=== PATIENT | female | born 2000 | race African-American/Black ===

== ENCOUNTER 2022-09-02 14:37 | Emergency (ER) | payer OTHER, SELFPAY ==
--- NOTE | ~2022-09-02 | XR_ITS ---
EXAMINATION: XR CHEST CLINICAL INFORMATION: Cough and shortness of breath COMPARISON: None TECHNIQUE: Frontal portable view of the chest was obtained. 7:56 PM FINDINGS: No significant abnormality is noted involving the heart, lungs, mediastinum, bony thorax or soft tissues. XR/XR chest 1V IMPRESSION: Unremarkable examination.
[2022-09-02 16:44] VITALS: BP 110/47; PULSE 82; RESP 16; TEMP 36.7; O2SAT 96; BMI 23.2
--- NOTE | 2022-09-02 16:45 | ED.GENADULT ---
HPI - General Adult General Chief complaint: Upper Respiratory Symptoms <Luma Garvin MD - Last Filed: 09/02/22 16:46> Stated complaint: sore throat <Luma Garvin MD - Last Filed: 09/02/22 16:46> Time Seen by Provider: 09/02/22 19:24 <Luma Garvin MD - Last Filed: 09/02/22 16:46> Source: patient <ROSALIE Cloud - Last Filed: 09/03/22 01:09> Mode of arrival: ambulatory <ROSALIE Cloud - Last Filed: 09/03/22 01:09> History of Present Illness HPI narrative: Pt is a 22 yo assigned female at w/ no significant PMHx presenting w/ a 5 day hx of flu-like symptoms. Pt states symptoms started last w/ a sore throat and cough that is productive of yellow sputum. Endorses associated subjective fevers and SOB. Denies headache, ear pain, dizziness, lightheadedness, chest pain, lymphadenopathy, abd pain, N/V/D, changes to urinary habits or dysuria, myaglias, or rashes. Denies known sick contacts. <ROSALIE Cloud - Last Filed: 09/03/22 01:09> Onset (ago): day(s) (5) <ROSALIE Cloud - Last Filed: 09/03/22 01:09> Location: head and neck (sore throat) <ROSALIE Cloud - Last Filed: 09/03/22 01:09> Radiation: non-radiation <ROSALIE Cloud - Last Filed: 09/03/22 01:09> Severity: mild <ROSALIE Cloud - Last Filed: 09/03/22 01:09> Severity scale (1-10): 2 <ROSALIE Cloud Last Filed: 09/03/22 01:09> Quality: aching <ROSALIE Cloud - Last Filed: 09/03/22 01:09> Pain Consistency: constant <ROSALIE Cloud Last Filed: 09/03/22 01:09> Relieving factors: medication (DayQuil, NyQuil) <ROSALIE Cloud - Last Filed: 09/03/22 01:09> Exacerbating factors: none <ROSALIE Cloud - Last Filed: 09/03/22 01:09> Associated symptoms: cough and fever/chills <ROSALIE Cloud - Last Filed: 09/03/22 01:09> Treatments prior to arrival: none <ROSALIE Cloud - Last Filed: 09/03/22 01:09> Related Data Home medications: Previous Rx's Medication Instructions Recorded benzonatate 100 mg capsule 100 mg PO TID PRN cough #14 caps 09/02/22 fluticasone propionate 50 2 spray intranasal DAILY #16 grams 09/02/22 mcg/actuation nasal spray,suspension (Flonase Allergy Relief) <Luma Garvin MD - Last Filed: 09/02/22 16:46> Allergies/adverse reactions: Allergies Allergy/AdvReac Type Severity Reaction Status Date / Time Unable to Assess Allergy Verified 09/02/22 15:06 <Luma Garvin MD - Last Filed: 09/02/22 16:46> Review of Systems Review of Systems: Constitutional: +subj Fever, No Chills ENT/Mouth: No Ear Pain, + Nasal Congestion, No Sinus Pain, No Hoarseness, + sore throat, No Rhinorrhea, No Swallowing Difficulty Cardiovascular: No Chest Pain, + SOB Respiratory: + Cough, + Sputum, No Wheezing Gastrointestinal: No Nausea, No Vomiting, No Diarrhea, No Constipation, No Abdominal pain Genitourinary: No Dysuria, No Urinary Frequency, No Hematuria, No Flank Pain Musculoskeletal: No joint pain, No Myalgias, No Joint Swelling Skin: No Skin Lesions, No rash Neuro: No Weakness, No headache, No dizziness/lightheadedness <ROSALIE Cloud Last Filed: 09/03/22 01:09> Yes all other systems are reviewed and are negative <ROSALIE Cloud Last Filed: 09/03/22 01:09> Constitutional: Constitutional: Reports as per HPI <ROSALIE Cloud Last Filed: 09/03/22 01:09> PMFSH Past Medical History Attestation statement: The following information was validated with the patient. <ROSALIE Cloud - Last Filed: 09/03/22 01:09> Social History Social History: Social History Advance Directives: No Advance Directives Information Provided: No <Luma Garvin MD - Last Filed: 09/02/22 16:46> Physical Exam ED Vital Signs: Vital Signs - 24 hr 09/02/22 16:44 Temperature 98.1 F Pulse Rate 82 Respiratory Rate 16 Blood Pressure 110/47 L Pulse Oximetry 96 Oxygen Delivery Method Room Air BMI result Body Mass Index 23.2 <Luma Garvin MD - Last Filed: 09/02/22 16:46> Vital Signs - 24 hr 09/02/22 16:44 Temperature 98.1 F Pulse Rate 82 Respiratory Rate 16 Blood Pressure 110/47 L Pulse Oximetry 96 Oxygen Delivery Method Room Air BMI result Body Mass Index 23.2 <ROSALIE Cloud - Last Filed: 09/03/22 01:09> Const General: cooperative, healthy appearing, no acute distress, well developed, alert and awake <ROSALIE Cloud - Last Filed: 09/03/22 01:09> Orientation/consciousness: patient oriented x3 <ROSALIE Cloud - Last Filed: 09/03/22 01:09> Limitations: no limitations <ROSALIE Cloud - Last Filed: 09/03/22 01:09> HENMT Head: Yes normal to inspection and Yes atraumatic <ROSALIE Cloud - Last Filed: 09/03/22 01:09> Ears: hearing grossly normal bilaterally, external ears normal, TM's normal bilaterally and mastoids normal <ROSALIE Cloud - Last Filed: 09/03/22 01:09> General nose exam: Normal external nose present <ROSALIE Cloud Last Filed: 09/03/22 01:09> Face and sinus: Yes normal facial exam <ROSALIE Cloud Last Filed: 09/03/22 01:09> Mouth: Normal oral and palatal mucosa present, oropharynx normal, moist mucous membranes, no drooling and no muffled voice <ROSALIE Cloud Last Filed: 09/03/22 01:09> Throat: Yes posterior oropharynx normal, Yes tonsils normal, Yes uvula midline and No peritonsillar mass <ROSALIE Cloud - Last Filed: 09/03/22 01:09> Eyes General: appearance normal, both eyes and all related structures <ROSALIE Cloud - Last Filed: 09/03/22 01:09> Conjunctivae: conjunctival abnormal left conjunctival injection (mild, no drainage noted) <ROSALIE Cloud - Last Filed: 09/03/22 01:09> EOM: EOMs intact bilaterally <ROSALIE Cloud - Last Filed: 09/03/22 01:09> Neck Neck: Yes normal visual inspection, Yes no lymphadenopathy, Yes no meningeal signs and Yes trachea midline <ROSALIE Cloud - Last Filed: 09/03/22 01:09> Lymphatic: no lymphadenopathy noted <ROSALIE Cloud - Last Filed: 09/03/22 01:09> Chest Chest palpation & inspection: normal inspection of the chest <ROSALIE Cloud - Last Filed: 09/03/22 01:09> Resp Effort & Inspection: normal respiratory effort, no respiratory distress and no stridor <ROSALIE Cloud - Last Filed: 09/03/22 01:09> Auscultation: clear to auscultation bilaterally, no crackles, no rales, no rhonchi and no wheezes <ROSALIE Cloud - Last Filed: 09/03/22 01:09> Cardio Rate: regular rate <ROSALIE Cloud - Last Filed: 09/03/22 01:09> Heart sounds: S1 normal heart sound present and S2 normal heart sound present <ROSALIE Cloud - Last Filed: 09/03/22 01:09> GI Inspection: Yes normal to inspection <ROSALIE Cloud - Last Filed: 09/03/22 01:09> Palpation (GI): Soft to palpation, nontender, no guarding and not rigid <ROSALIE Cloud - Last Filed: 09/03/22 01:09> Skin General skin exam: no rashes or lesions noted <ROSALIE Cloud - Last Filed: 09/03/22 01:09> Neuro General: patient oriented x3 and no meningeal signs <ROSALIE Cloud - Last Filed: 09/03/22 01:09> Extrem General: Yes normal to inspection, Yes no pedal edema and Yes no calf tenderness <ROSALIE Cloud - Last Filed: 09/03/22 01:09> Course Course Course Narrative: 22F with sore throat, cough, dysphagia, no sick contacts, since . VS Reviewed GEN: NAD HEENT: NC/AT, EOMI/PERRLA, Ears wnl, Throat wnl PULM: CTAB, no tachypnea CVS: RRR, no murmurs ABD: Nt/ND Ext: warm, dry - SARS, Strep <Luma Garvin MD - Last Filed: 09/02/22 16:46> 22F with sore throat, cough, dysphagia, no sick contacts, since . VS Reviewed GEN: NAD HEENT: NC/AT, EOMI/PERRLA, Ears wnl, Throat wnl PULM: CTAB, no tachypnea CVS: RRR, no murmurs ABD: Nt/ND Ext: warm, dry - SARS, Strep -2046--CXR unremakable <ROSALIE Cloud - Last Filed: 09/03/22 01:09> Medical Decision Making Medical Decision Making MDM Narrative: Pt is a 22 yo assigned female at w/ no significant PMHx presenting w/ a 5 day hx of flu-like symptoms. On exam vital signs stable, NAD, nontoxic appearing, exam otherwise nonfocal, no evidence of LEGAL ACTIVITY ADJUDICATOR, lungs CTA. Concern for viral illness vs bronchitis vs asthma vs pharyngitis. No evidence of LEGAL ACTIVITY ADJUDICATOR. Low suspicion for ACS/PE Plan: CXR, COVID-19/influenza/RSV testing, rapid strep <ROSALIE Cloud - Last Filed: 09/03/22 01:09> Differential Diagnoses: Differential diagnosis (as above) Differential Diagnosis: The differential diagnosis associated with the patient?s presentation includes: <ROSALIE Cloud - Last Filed: 09/03/22 01:09> Non-ED record review: Review of External (Non-ED) Record <ROSALIE Cloud - Last Filed: 09/03/22 01:09> Tests considered but not performed: Tests Considered But Not Performed (labs) The following testing was considered but ultimately not selected after discussion with patient/family. <ROSALIE Cloud - Last Filed: 09/03/22 01:09> Discharge Plan Discharge Clinical Impression: Upper respiratory infection <Luma Garvin MD - Last Filed: 09/02/22 16:46> Patient Disposition: Home, Self-Care <Luma Garvin MD - Last Filed: 09/02/22 16:46> Instructions: Upper Respiratory Infection (ED) <Luma Garvin MD - Last Filed: 09/02/22 16:46> Additional Instructions: Your chest x-ray is unremarkable. You tested negative for strep throat. Your COVID, flu, and RSV test is currently pending, you will be contacted with positive results only Tessalome Robles for cough, take as needed. Flonase is a nasal decongestion. In addition take Tylenol and Motrin. Rest. Stay hydrated. Follow up with her doctor. If symptoms persist or worsen return to the emergency department <Luma Garvin MD - Last Filed: 09/02/22 16:46> Prescriptions: New benzonatate 100 mg capsule 100 mg PO TID PRN (Reason: cough) Qty: 14 0RF fluticasone propionate [Flonase Allergy Relief] 50 mcg/actuation spray,suspension 2 spray intranasal DAILY Qty: 16 0RF Rx Instructions: administer into each nostril <Luma Garvin MD - Last Filed: 09/02/22 16:46> Referrals: Physician,Nonstaff [Primary Care Provider] - ED Physician,Generic [Physician] - <Luma Garvin MD - Last Filed: 09/02/22 16:46> Stand Alone Forms: Work/School Release <Luma Garvin MD - Last Filed: 09/02/22 16:46> Interventions: ED Discharge Assessment Last Done: 09/02/22 20:58 <Luma Garvin MD - Last Filed: 09/02/22 16:46> Discharge Date/Time: 09/02/22 20:58 <Luma Garvin MD - Last Filed: 09/02/22 16:46>
[2022-09-02 18:16] LABS: Strep A Nucleic Acid Negative (Negative)
--- NOTE | 2022-09-02 20:55 | PC.NURSE ---
Tre by PA, cleared for wa home.
[2022-09-02 20:57] LABS: Influenza A PCR NEGATIVE (Negative); Influenza B PCR NEGATIVE (Negative); Resp Syncy Virus RNA Qual PCR NEGATIVE (Negative); SARS COV2 PCR INHOUSE NEGATIVE (Negative)
== END 2022-09-02 20:58 | disposition home or self-care (01) ==
PROVIDERS: Student in an Organized Health Care Education/Training Program; Emergency Provider Emergency Medicine
DX: J06.9 Acute upper respiratory infection, unspecified (principal); Z20.822 Contact with and (suspected) exposure to COVID-19; J02.9 Acute pharyngitis, unspecified
CPT/HCPCS: 0241U; 36415; 71045; 87651; 99282; 99283

== ENCOUNTER 2023-06-24 17:06 | Emergency (ER) | payer SELFPAY ==
[2023-06-24 17:21] VITALS: BP 129/78; PULSE 84; RESP 18; TEMP 36.7; O2SAT 99; BMI 22.2
--- NOTE | 2023-06-24 17:34 | ED_ITS ---
HPI - Female Genitourinary General Chief complaint: Urogenital-Female Stated complaint: Wants STD testing, no current symptoms Time Seen by Provider: 06/24/23 18:30 Source: patient Mode of arrival: ambulatory Limitations: no limitations History of Present Illness HPI Narrative: Patient is a 22-year-old female who presents emergency department requesting testing for sexually transmitted infections. She states that 2 weeks ago she began having green vaginal discharge. One week ago her menstrual cycle began and ended yesterday. She denies any vaginal discharge today. She is endorsing dysuria over the past few days. She endorses only having 1 sexual partner, does not use barrier contraception. Declines possibility for . Reports menstrual cycle was of normal duration in quality for her. She denies pelvic pain, abdominal pain, nausea, vomiting, fevers, chills, past history of sexually transmitted infections. Related Data Previous Rx's Medication Instructions Recorded benzonatate 100 mg capsule 100 mg PO TID PRN cough #14 caps 09/02/22 fluticasone propionate 50 2 spray intranasal DAILY #16 grams 09/02/22 mcg/actuation nasal spray,suspension (Flonase Allergy Relief) doxycycline hyclate 100 mg capsule 100 mg PO BID #13 caps 06/24/23 Allergies Allergy/AdvReac Type Severity Reaction Status Date / Time No Known Allergies Allergy Verified 06/24/23 17:23 Review of Systems Review of Systems: Yes all other systems are reviewed and are negative [facility] Past Medical History Attestation statement: The following information was validated with the patient. Source: old records reviewed Social History Social History Advance Directives: No Advance Directives Information Provided: No Physical Exam Vital Signs: Vital Signs: Last Vital Signs Temp 97.7 F 06/24/23 20:21 Pulse 78 06/24/23 20:21 Resp 16 06/24/23 20:21 BP 110/84 06/24/23 20:21 Pulse Ox 99 06/24/23 20:21 O2 Del Method Room Air 06/24/23 20:21 BMI result Body Mass Index 22.2 Appearance: Alert.?Oriented to person, place and time. No acute d istress.?Normal affect. ENT: Pharynx normal.?? Neck: Normal inspection.? Neck supple.?? CVS: Heart sounds normal. Normal heart rate and rhythm.? Pulses normal.?? Respiratory: No respiratory distress.? Lung sounds clear to auscultation bilaterally?? Abdomen: Soft and non-tender. Normoactive bowel sounds. No CVA tenderness Genitourinary: Declines examination? Skin: Skin warm and dry.? Normal skin color.? Extremities: No lower extremity edema.? Neuro: Moves all extremities spontaneously. Sensation intact bilaterally. Ambulates with normal steady gait. Course Course Course Narrative: This is an RME: Additional HPI, ROS, PE not included below will be deferred to primary provider. 22 y o female presenting for request of STD testing. States she has been having green discharge and pain with urination x few days. States she has one sexual partner, does not use condoms. Plan -- STD testing Medical Decision Making Medical Decision Making MDM Narrative: Patient is a 22-year-old female who presents emergency department requesting testing for sexually transmitted infections. She denies pelvic pain, declines having genital/pelvic examination, denies any lesions or sores to the genital region. Without pain, fevers less likely to be PID. Discussed options with patient, she has opted for self swabbing of the vaginal region for chlamydia, gonorrhea, bacterial vaginosis panel, Trichomonas. We discussed options for prophylactic treatment with ceftriaxone and doxycycline which she is in agreement with. Urinalysis reveals 1+ pyuria trace urine bacteria,negative nitrite,negative . Patient received ceftriaxone IM while in the emergency department and initial dosage of doxycycline. Discussed outpatient follow-up primary care provider. Reviewed worrisome signs symptoms that would warrant re-evaluation in the emergency department. Differential Diagnosis Differential Diagnoses: The differential diagnosis associated with the presentation includes (As noted above) Lab Data MDM Lab Attestation statement: I reviewed the patient's lab results. (As noted above) Labs: Lab Results 06/24/23 Range/Units 19:35 Urine Color Yellow Urine Appearance Clear Urine pH 7.0 (5.0-9.0) Ur Specific [place] <= 1.005 (1.005-1.025) Urine Protein Negative (Neg-Trace) mg/dL Urine Glucose (UA) Negative (Negative) mg/dL Urine Ketones Negative (Negative) mg/dL Urine Blood Negative (Negative) Urine Nitrite Negative (Negative) Ur Leukocyte Esterase Small (1+) H (Negative) Urine RBC 0-2 (0-2) /HPF Urine WBC 6-10 H (0-5) /HPF Ur Squamous Epith Cells 3-5 (0-2) /HPF Urine Bacteria Trace (None Seen) Hyaline Casts 0-2 (0-2) /LPF Urine Test NEGATIVE (NEGATIVE) External Record Review External record reviewed: Prior outpatient labs Prescription Management I considered prescription management with: Antibiotic Discharge Plan Discharge Clinical Impression: Screen for sexually transmitted diseases, Vaginal discharge Instructions: Safe Sex Practices (ED), Vaginal Discharge (ED) Additional Instructions: I have sent the course of antibiotics to your pharmacy, please complete this entire course. If any of your testing results as positive you will receive a phone call from the hospital within the next few days. You may return back to emergency department any new or worsening symptoms or concerns. Please follow- up with your primary care provider for further evaluation as needed. Prescriptions: New doxycycline hyclate 100 mg capsule 100 mg PO BID Qty: 13 0RF No Action benzonatate 100 mg capsule 100 mg PO TID PRN (Reason: cough) Qty: 14 0RF fluticasone propionate [Flonase Allergy Relief] 50 mcg/actuation spray,suspension 2 spray intranasal DAILY Qty: 16 0RF Rx Instructions: administer into each nostril Referrals: Physician,Unknown J [Primary Care Provider] -
[2023-06-24 19:45] LABS: Appearance Urine Clear; Color Urine Yellow; Glucose Urine UA Negative (Negative); Leukocyte Esterase Urine Small (1+) (Negative); Nitrite Urine Negative (Negative); Specific Gravity - Urine <= 1.005 (1.005-1.025); UMIC TRIGGER UACC YES; Urine Blood Negative (Negative); Urine Ketones Negative (Negative); Urine Protein Negative (Neg-Trace)
[2023-06-24 19:47] LABS: UPreg QC Valid YES; Urine Pregnancy NEGATIVE (NEGATIVE)
[2023-06-24 20:21] VITALS: BP 110/84; PULSE 78; RESP 16; TEMP 36.5; O2SAT 99
[2023-06-24 20:24] LABS: Bacteria Urine Trace (None Seen); Hyaline Casts Urine 0-2 /LPF (0-2); RBC Urine 0-2 /HPF (0-2); UACC Culture Trigger YES
[2023-06-24] MEDS: Doxycycline Monohydrate 100 MG CAPSULE PO (20:38)
[2023-06-24] MEDS: cefTRIAXone sodium 500 MG, Lidocaine HCl 1 % MPF 1 ML IM (20:39)
[2023-06-25 05:31] LABS: CT PCR NOT DETECTED (Not Detect.); NG PCR NOT DETECTED (Not Detect.)
[2023-06-25 11:01] LABS: BV Int Neg Control Negative (Negative); BV Int Pos Control Positive (Positive)
== END 2023-06-24 20:45 | disposition home or self-care (01) ==
PROVIDERS: Nurse Practitioner Family; Physician Assistant; Emergency Provider Emergency Medicine
DX: N89.8 Other specified noninflammatory disorders of vagina (principal); Z20.2 Contact with and (suspected) exposure to infections with a predominantly sexual mode of transmission; Z79.899 Other long term (current) drug therapy
CPT/HCPCS: 0353U; 81001; 81003; 81025; 87086; 87480; 87510; 87660; 96372; 99283; 99284; J0696

== ENCOUNTER 2024-05-10 18:54 | Emergency (ER) | payer OTHER, SELFPAY ==
[2024-05-10 18:56] VITALS: BP 115/75; PULSE 90; RESP 18; TEMP 36.8; O2SAT 98; BMI 22.3
--- NOTE | 2024-05-10 18:57 | ED_ITS ---
HPI - General Adult General Chief complaint: Abdominal Pain Stated complaint: rightside abd pain Time Seen by Provider: 05/10/24 21:43 Source: patient, RN notes reviewed and old records reviewed Mode of arrival: ambulatory Limitations: no limitations History of Present Illness ED Provider: Corrina PETERSEN narrative: 23-year-old female presents for evaluation of burning with urination, urinary frequency and blood in her urine. She 1st started with her symptoms 5 days ago. She initially just had dysuria and urinary frequency. Over the last few days she noticed blood in her urine. She reports increasing water consumption and the has been clearing up She is now complaining of some mild right lower abdominal pain Denies any fevers, chills, nausea vomiting Denies any vaginal bleeding or discharge pain Denies any new sexual partners or concern for sexually transmitted infection Related Data Previous Rx's ?Medication ?Instructions ?Recorded benzonatate 100 mg capsule 100 mg PO TID PRN cough #14 caps 09/02/22 fluticasone propionate 50 2 spray intranasal DAILY #16 grams 09/02/22 mcg/actuation nasal spray,suspension (Flonase Allergy Relief) doxycycline hyclate 100 mg capsule 100 mg PO BID #13 caps 06/24/23 cefuroxime axetil 250 mg tablet 250 mg PO Q12H #10 tabs 05/10/24 phenazopyridine 200 mg tablet 200 mg PO TID PRN pain 6 doses #6 05/10/24 (Pyridium) tabs Allergies Allergy/AdvReac Type Severity Reaction Status Date / Time No Known Allergies Allergy Verified 05/10/24 18:58 Review of Systems 2 Constitutional: Constitutional: Denies body ache(s), Denies chills, Denies fever(s) and Denies headache(s) Eyes: Eyes: Denies blurry vision ENT: Denies headache(s) and Denies sore throat Cardiovascular: Cardiovascular: Denies chest pain and Denies dyspnea Respiratory: Respiratory: Denies cough and Denies dyspnea Gastrointestinal: Gastrointestinal: Reports abdominal pain, Denies nausea and Denies vomiting Genitourinary: Genitourinary: Reports hematuria and Reports dysuria Musculoskeletal: Musculoskeletal: Denies back pain Integumentary/Breasts: Skin/Breast: Denies rash Neurologic: Denies headache(s) PENDING SALE TO [facility] Social History Social History Advance Directives: No Advance Directives Information Provided: No Do you have a plan to hurt others: No Plan Physical Exam ED Vital Signs: Vital Signs - 24 hr 05/10/24 18:56 05/10/24 22:29 Temperature 98.3 F 98.3 F Pulse Rate 90 90 Respiratory Rate 18 18 Blood Pressure 115/75 115/75 Pulse Oximetry 98 98 Oxygen Delivery Method Room Air Room Air BMI result Body Mass Index 22.3 Const General: healthy appearing, comfortable, no acute distress, alert and awake Nutritional Appearance: well nourished Orientation/consciousness: patient oriented x3 HENMT Head: Yes normocephalic and Yes atraumatic Eyes Eyelids: Yes eyelids normal Conjunctivae: conjunctivae normal Sclerae: sclerae normal Corneas: corneas normal Pupils: Equal, round and reactive pupils present EOM: EOMs intact bilaterally Neck Neck: Yes full ROM Resp Effort & Inspection: normal respiratory effort, able to speak in complete sentences and not labored GI Inspection: No distended Palpation (GI): Soft to palpation, not firm, nontender, no guarding and not rigid Skin General skin exam: elasticity normal Neuro General: patient oriented x3 Cranial nerves: Yes Equal, round and reactive pupils present and Yes Bilaterally intact EOM present Cognition (Neuro): normal cognition Extrem Other: Moving all extremities well without any obvious deformities Course Course Course Narrative: RME performed by Debra Zuluaga PA-C. Patient is a 23 year old assigned female at presenting to the emergency department with lower abdominal pain, increased urinary frequency, and blood in her urine. Patient states over the last couple of days she has had lower abdominal pain with increased urinary frequency and blood in her urine. Detailed physical exam and review of systems are deferred to the scribing machine operator. Labs ordered. Patient placed back in the waiting room pending room availability and results. Medications Administered Discontinued Medications Generic Name Dose Route Start Last Admin Trade Name Freq PRN Reason Stop Dose Admin Cefuroxime Axetil 250 mg 05/10/24 21:55 05/10/24 22:24 Cefuroxime Axetil 250 Mg Tablet PO 05/10/24 21:56 250 mg ONCE ONE Administration Phenazopyridine HCl 200 mg 05/10/24 21:55 05/10/24 22:24 Phenazopyridine Hcl 200 Mg Tablet PO 05/10/24 21:56 200 mg ONCE ONE Administration Medical Decision Making Medical Decision Making [facility] Narrative: Female presents for evaluation of UTI symptoms with frequency, dysuria and hematuria. She has no significant right flank pain, no CVA tenderness on exam, she has no significant abdominal tenderness on exam. She denies any concerns for sexually transmitted infections and declines pelvic examination. Her workup was significant for UTI, this will be treated accordingly. She was given return precautions. There is no evidence of sepsis Differential Diagnosis Differential Diagnoses: The differential diagnosis associated with the presentation includes UTI Cystitis Ovarian cyst Ovarian torsion less likely Obstructive uropathy Lab Data [facility] Lab Attestation statement: I reviewed the patient's lab results. No leukocytosis. The patient does have a mild anemia. Normal platelet count. No significant electrolyte abnormalities. Urinalysis is consistent with a UTI given the hematuria, 3+ leukocyte esterase, 21-50 white cells with the absence of epithelial cells and 1+ bacteria 05/10/24 19:43 05/10/24 19:43 Labs: Lab Results 05/10/24 05/10/24 Range/Units 19:42 19:43 WBC 8.9 (4.8-10.8) X10*3/uL RBC 3.97 L (4.20-5.50) X10*6/uL Hgb 10.7 L (12.0-16.0) g/dl Hct 32.4 L (37.0-47.0) % MCV 81.6 (80.0-98.0) fL MCH 27.0 (27.0-33.0) pg MCHC 33.0 (31.0-35.0) g/dl RDW 15.6 (11.0-16.0) % Plt Count 312 (160-400) X10*3/uL MPV 9.9 (9.4-12.3) fL Immature Gran % (Auto) 0.2 (0.0-0.4) % Neut % (Auto) 69.9 (45-73) % Lymph % (Auto) 20.9 (20-40) % [place] % (Auto) 8.4 (2-11) % Eos % (Auto) 0.4 (0-4) % Baso % (Auto) 0.2 (0-2) % Lymph # (Auto) 1.9 (1.2-4.9) X10*3/uL [place] # (Auto) 0.8 (0.1-1.2) X10*3/uL Eos # (Auto) 0.0 (0.0-0.4) X10*3/uL Baso # (Auto) 0.0 (0.0-0.2) X10*3/uL Abs Immat Gran (auto) 0.02 (0.00-0.03) X10*3/uL Absolute Neuts (auto) 6.2 (2.0-8.3) x10*3/uL Absolute Nucleated RBC 0.000 (0.0-0.012) X10*3/uL Nucleated RBC % (auto) 0.0 (0.0-0.2) /100WBC Sodium 138 (135-145) mmol/L Potassium 3.5 (3.3-5.1) mmol/L Chloride 105 (96-108) mmol/L Carbon Dioxide 23 (22-29) mmol/L Anion Gap 14 (12-20) BUN 4 L (9-16) mg/dL Creatinine 0.75 (0.5-1.4) mg/dL Estim Creat Clear Calc 80.9 Estimated GFR > 60 Random Glucose 92 (60-115) mg/dL Calcium 9.2 (8.4-10.2) mg/dL Magnesium 2.0 (1.6-2.6) mg/dL Total Bilirubin 0.2 (0.0-1.0) mg/dL AST 15 (5-31) U/L ALT 8 (0-31) U/L Alkaline Phosphatase 45 (39-117) U/L Total Protein 7.5 (6.5-8.0) g/dL Albumin 4.1 (3.5-5.0) g/dL Beta HCG, Quant < 2 mIU/mL Urine Color Yellow Urine Appearance Cloudy Urine pH 6.5 (5.0-9.0) Ur Specific [place] <= 1.005 (1.005-1.025) Urine Protein Negative (Neg-Trace) mg/dL Urine Glucose (UA) Negative (Negative) mg/dL Urine Ketones Negative (Negative) mg/dL Urine Blood Small (1+) H (Negative) Urine Nitrite Negative (Negative) Ur Leukocyte Esterase Large (3+) H (Negative) Urine RBC 0-2 (0-2) /HPF Urine WBC 21-50 H (0-5) /HPF Ur Squamous Epith Cells 0-2 (0-2) /HPF Urine Bacteria 1+ (None Seen) Hyaline Casts 0-2 (0-2) /LPF Discharge Plan Discharge Clinical Impression: Urinary tract infection Patient Disposition: Home, Self-Care Instructions: Urinary Tract Infection in Women (ED) Additional Instructions: Your workup in the ER today was reassuring. It did show that you have a urinary tract infection. Your blood work had no concerning abnormalities. Take the antibiotic twice daily for 5 days. Use Pyridium as needed for urinary discomfort Follow-up with your primary doctor, return for new or worsening symptoms Prescriptions: New cefuroxime axetil 250 mg tablet 250 mg PO Q12H Qty: 10 0RF phenazopyridine [Pyridium] 200 mg tablet 200 mg PO TID PRN (Reason: pain) Qty: 6 0RF No Action benzonatate 100 mg capsule 100 mg PO TID PRN (Reason: cough) Qty: 14 0RF fluticasone propionate [Flonase Allergy Relief] 50 mcg/actuation spray,suspension 2 spray intranasal DAILY Qty: 16 0RF Rx Instructions: administer into each nostril doxycycline hyclate 100 mg capsule 100 mg PO BID Qty: 13 0RF Interventions: ED Discharge Assessment Last Done: 05/10/24 22:29 Discharge Date/Time: 05/10/24 22:30 Print Language: Lithuanian
[2024-05-10 19:46] LABS: MANUAL DIFF FLAG NO
[2024-05-10 19:47] LABS: Basophils Percent Auto 0.2 % (0-2); Eosinophils Percent Auto 0.4 % (0-4); Hematocrit 32.4 % (37.0-47.0); Hemoglobin 10.7 g/dl (12.0-16.0); Imm Gran Abs Auto 0.02 X10*3/uL (0.00-0.03); Imm Gran Pct Auto 0.2 % (0.0-0.4); Lymphocytes Absolute Auto 1.9 X10*3/uL (1.2-4.9); Lymphocytes Percent Auto 20.9 % (20-40); Mean Corpuscular Volume 81.6 fL (80.0-98.0); Mean Platelet Volume 9.9 fL (9.4-12.3); Monocytes Absolute Auto 0.8 X10*3/uL (0.1-1.2); Monocytes Percent Auto 8.4 % (2-11); Neutrophils Absolute Auto 6.2 x10*3/uL (2.0-8.3); Neutrophils Percent Auto 69.9 % (45-73); Platelet Count 312 X10*3/uL (160-400); Red Blood Count 3.97 X10*6/uL (4.20-5.50); Red Cell Distribution Width 15.6 % (11.0-16.0); White Blood Count 8.9 X10*3/uL (4.8-10.8)
[2024-05-10 19:51] LABS: Appearance Urine Cloudy; Color Urine Yellow; Glucose Urine UA Negative (Negative); Leukocyte Esterase Urine Large (3+) (Negative); Nitrite Urine Negative (Negative); PH 6.5 (5.0-9.0); Specific Gravity - Urine <= 1.005 (1.005-1.025); UMIC TRIGGER UACC YES; Urine Blood Small (1+) (Negative); Urine Ketones Negative (Negative); Urine Protein Negative (Neg-Trace)
[2024-05-10 20:01] LABS: Bacteria Urine 1+ (None Seen); Hyaline Casts Urine 0-2 /LPF (0-2); RBC Urine 0-2 /HPF (0-2); Squamous Epithelial Cell Urine 0-2 /HPF (0-2); UACC Culture Trigger YES; WBC Urine 21-50 /HPF (0-5)
[2024-05-10 20:11] LABS: Alanine Aminotransferase 8 U/L (0-31); Albumin Level 4.1 g/dL (3.5-5.0); Alkaline Phosphatase 45 U/L (39-117); Anion Gap 14 (12-20); Aspartate Amino Transferase 15 U/L (5-31); Bilirubin Total 0.2 mg/dL (0.0-1.0); Blood Urea Nitrogen 4 mg/dL (9-16); Calcium 9.2 mg/dL (8.4-10.2); Carbon Dioxide 23 mmol/L (22-29); Chloride 105 mmol/L (96-108); Creatinine Clr Calc Pharmacy 80.9; Estimated Glomerular Filt Rate > 60; Glucose Random 92 mg/dL (60-115); HCG Quantitative < 2 mIU/mL; Potassium 3.5 mmol/L (3.3-5.1); Sodium 138 mmol/L (135-145); Total Protein 7.5 g/dL (6.5-8.0)
--- NOTE | 2024-05-10 22:09 | PC.NURSE ---
Pt eval by PA, plan for PO meds and dc home, pt agreeable to plan of care.
[2024-05-10] MEDS: Phenazopyridine HCL 200 MG TABLET PO (22:24)
[2024-05-10] MEDS: cefuroxime axetiL 250 MG TABLET PO (22:24)
[2024-05-10 22:29] VITALS: BP 115/75; PULSE 90; RESP 18; TEMP 36.8; O2SAT 98
== END 2024-05-10 22:30 | disposition home or self-care (01) ==
PROVIDERS: Physician Assistant Medical; Emergency Provider Emergency Medicine
DX: N39.0 Urinary tract infection, site not specified (principal); R30.0 Dysuria; R35.0 Frequency of micturition; R10.31 Right lower quadrant pain; R10.2 Pelvic and perineal pain; R31.9 Hematuria, unspecified; Z79.899 Other long term (current) drug therapy
CPT/HCPCS: 36415; 80053; 81001; 83735; 84702; 85025; 87086; 99283